=== PATIENT | female | born 2000 | race Caucasian/White ===

== ENCOUNTER 2022-06-09 17:03 | Emergency (ER) | payer OTHER, SELFPAY ==
[2022-06-09 16:56] VITALS: BP 116/76; PULSE 66; RESP 16; TEMP 36.3; O2SAT 95
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
== END 2022-06-09 18:34 | disposition home or self-care (01) ==
PROVIDERS: Emergency Provider Emergency Medicine
DX: S52.121A Displaced fracture of head of right radius, initial encounter for closed fracture (principal); S00.81XA Abrasion of other part of head, initial encounter; Z87.820 Personal history of traumatic brain injury; V18.4XXA Pedal cycle driver injured in noncollision transport accident in traffic accident, initial encounter; Y93.55 Activity, bike riding
CPT/HCPCS: 99284; 70450; 73090; 99282